=== PATIENT | male | born 1985 | race Asian ===

== ENCOUNTER 2021-07-01 23:26 | Emergency (ER) | payer MEDICAID ==
[~2021-07-01] VITALS: Ht 167.6 cm; Wt 113.6 kg
[2021-07-02] MEDS ORDERED: 0.9% SODIUM CHLORIDE 10 ML SYRINGE IVP PRN (01:00)
[2021-07-02 02:27] LABS: BASOPHILS % (AUTO) 0.6 % (0.0-2.0); EOSINOPHILS % (AUTO) 5.3 % (1.0-6.0); HEMATOCRIT 51.5 % (41-53); HEMOGLOBIN 16.8 g/dL (13.5-17.5); MEAN CORPUSCULAR HEMOGLOBIN 28.3 pg (26.0-34.0); MEAN CORPUSCULAR HGB CONC 32.5 G/dL (31.0-37.0); MEAN CORPUSCULAR VOLUME 87 fL (80-100); MONOCYTES # (AUTO) 1.1 K/uL (0.1-1.0); MONOCYTES % (AUTO) 9.1 % (2.0-9.0); PLATELET COUNT (AUTO) 222 K/uL (150-450); RED BLOOD CELL COUNT(AUTO) 5.92 MIL/uL (4.50-5.90); RED CELL DISTRIBUTION WIDTH 13.1 % (11.5-14.5)
[2021-07-02 02:37] LABS: ANION GAP 4 mmol/L (8-16); CALCIUM, TOTAL 8.4 mg/dL (8.8-10.5); CARBON DIOXIDE 28 mmol/L (22-29); CHLORIDE 107 mmol/L (98-107); CREATININE 1.07 mg/dL (0.60-1.30); GLOMERULAR FILTR. RATE CALC > 60 mL/min (>60); GLUCOSE,RANDOM 115 mg/dL (70-110); SODIUM SERUM 139 mmol/L (136-145); UREA NITROGEN, BLOOD 14 mg/dL (7-18)
[2021-07-02 02:40] LABS: INR 0.9 (0.9-1.1)
[2021-07-02 02:45] LABS: LACTIC ACID 0.7 mmol/L (0.4-2.0)
[2021-07-02 02:47] LABS: ALANINE AMINOTRANSFERASE 49 U/L (12-78); ALBUMIN 3.8 g/dL (3.4-5.0); ALKALINE PHOSPHATASE 98 U/L (46-116); ASPARTATE AMINOTRANSFERASE 20 U/L (15-37); BILIRUBIN,TOTAL 0.5 mg/dL (0.1-1.0); CREATINE KINASE, TOTAL ONLY 426 U/L (39-308); TOTAL PROTEIN, SERUM 8.1 g/dL (6.4-8.2)
[2021-07-02 02:48] LABS: ACETAMINOPHEN < 2 mcg/mL (10-30)
[2021-07-02 02:50] LABS: B-TYPE NATRIURETIC PEPTIDE < 4 pg/mL (0-100)
[2021-07-02 02:55] LABS: SALICYLATE < 2.8 mg/dL (2.8-20.0)
[2021-07-02 02:56] LABS: COVID AG,FIA SOURCE NASOPHARYNGEAL
[2021-07-02 06:00] VITALS: BP 132/79
[2021-07-02] MEDS ORDERED: ALBUTEROL SULFATE HFA 90 MCG/PUFF 8 GM INHALER IH ONE (06:15)
== END 2021-07-02 06:29 | disposition home or self-care (01) ==
LOC: EMS 23:28 → EDBD 23:28 → EMS 07-02 06:29
DX: F15.10 Other stimulant abuse, uncomplicated (principal); R41.82 Altered mental status, unspecified; Z59.0 Homelessness; Z20.822 Contact with and (suspected) exposure to COVID-19
CPT/HCPCS: 36415; 70450; 71045; 80053; 82550; 83605; 83880; 84484; 85025; 85610; 87040; 87205; 87426; 93005; 94640; 99285; G0480; 87077; G0481; J3535